=== PATIENT | male | born 1985 ===

== ENCOUNTER 2021-12-05 08:45 | Emergency (ER) | payer OTHER ==
[2021-12-05 08:52] VITALS: BP 145/89
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
--- NOTE | 2021-12-05 10:32 | XRay Report ---
BILATERAL HAND 6 VIEW(S) INDICATION / CLINICAL INFORMATION: hand injury COMPARISON: None available. FINDINGS: BONES / JOINT(S): No acute fracture or subluxation. 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 SOFT TISSUES: Marked soft tissue swelling on the dorsum of the right hand with mild soft tissue swell ing on the dorsum of the left wrist. ADDITIONAL FINDINGS: None. Signer Name: Tony Baca MD Signed: 12/05/2021 10:27 AM Workstation Name: [id number]
== END 2021-12-05 11:09 ==
LOC: ED 08:45
DX: S60.221A Contusion of right hand, initial encounter (principal); S60.222A Contusion of left hand, initial encounter; X58.XXXA Exposure to other specified factors, initial encounter; Y93.89 Activity, other specified; Y92.89 Other specified places as the place of occurrence of the external cause; Y99.8 Other external cause status
CPT/HCPCS: 99283